=== PATIENT | male | born 1980 | race Caucasian/White ===

== ENCOUNTER 2020-12-14 13:34 | Emergency (ER) | payer MEDICAID ==
[~2020-12-14] VITALS: Ht 175.3 cm; Wt 90.9 kg
[2020-12-14] MEDS ORDERED: LIDOCAINE 1% 10 ML VIAL PERC ONE (15:30)
[2020-12-14] MEDS ORDERED: BUPIVACAINE HCL 0.25% 50 ML VIAL PERC ONE (15:30)
[2020-12-14 17:02] VITALS: BP 134/91
== END 2020-12-14 17:22 | disposition home or self-care (01) ==
LOC: EDBD 13:37 → EMS 13:37
DX: S62.521B Displaced fracture of distal phalanx of right thumb, initial encounter for open fracture (principal); J45.909 Unspecified asthma, uncomplicated; I10 Essential (primary) hypertension; W45.8XXA Other foreign body or object entering through skin, initial encounter; Y93.89 Activity, other specified; Y92.89 Other specified places as the place of occurrence of the external cause; Y99.0 Civilian activity done for income or pay
CPT/HCPCS: 64450; 73140; 99284; J0690; J3490 ×2